=== PATIENT | male | born 1975 | race Caucasian/White ===

== ENCOUNTER → 2021-04-06 | Day surgery (SDC) | payer BC | END | disposition home or self-care (01) | LOC: MSO 07:13 | DX: Z12.11 Encounter for screening for malignant neoplasm of colon (principal); Z80.0 Family history of malignant neoplasm of digestive organs; E66.9 Obesity, unspecified; Z68.41 Body mass index [BMI] 40.0-44.9, adult | CPT/HCPCS: 00812; J2704; J7120 ==